=== PATIENT | male | born 1950 | race Caucasian/White ===

== ENCOUNTER 2016-10-19 22:54 | Emergency (ER) | payer MEDICARE, BC ==
--- NOTE | ~2016-10-19 | CR72 ---
[facility]. [facility] A Service of [facility] RADIOLOGY TEXT RESULTS PATIENT: MUSHTAQ RODRIGUEZ SR LOCATION: SED : 52 UNIT #: [id number] AGE: [address]: Ozzy Scott MD SEX: M ORDER DR: [id number] [place] [address] [id number] E MR#: [id number] Acc #: [id number] NAME: MUSHTAQ RODRIGUEZ SR : 1950 SEX: M STUDY DATE/TIME: 10/19/2016 23:43 UNIT: SED ROOM: STUDY DESCRIPTION: CR Chest Single View Portable Attending Physician: Ozzy Scott M.D. Ordering Physician: Ozzy Scott M.D. Primary Care Physician: Roderick Marquez M.D. MEDICAL IMAGING REPORT This report is preliminary unless electronic signature is present. EXAM AP portable chest, 10/19/2016 HISTORY 66-year-old male in the ED complaining of shortness of air beginning about 2 hours prior to arrival. TECHNIQUE AP portable chest x-ray. FINDINGS Moderately severe cardiomegaly is stable since prior studies. Pulmonary venous redistribution and diffusely increased interstitial markings suggest mild vascular congestion today. Prominent central pulmonary arteries. No visible airspace consolidation or pleural effusion. Median sternotomy. IMPRESSION Cardiomegaly and probable mild vascular congestion.. Dictated by... Harsh Hernandes M.D. THIS IS AN ELECTRONICALLY VERIFIED REPORT Harsh Hernandes M.D. at 10/20/2016 4:06 AM MONIK/radha TD: 10/20/2016 02:43 JOB #: [id number] [facility] A Service of [facility] RADIOLOGY TEXT RESULTS PATIENT: MUSHTAQ RODRIGUEZ SR LOCATION: SED : 52 UNIT #: [id number] AGE: [address]: Ozzy Scott MD SEX: M ORDER DR: MEDICAL IMAGING REPORT Page 1 of 1
--- NOTE | ~2016-10-19 | EKG ---
PATIENT: MUSHTAQ RODRIGUEZ UNIT #: [id number] Ventricular Rate: 118 BPM Atrial Rate: 125 BPM QRS Duration: 106 ms Q-T Interval: 376 ms QTC Calculation(Bezet): 527 ms Calculated R Blossom: 88 degrees Calculated T Blossom: -99 degrees Diagnosis Line: Atrial fibrillation with rapid ventricular Diagnosis Line: response with premature ventricular or aberrantly Diagnosis Line: conducted complexes Diagnosis Line: Marked ST abnormality, possible inferior Diagnosis Line: subendocardial injury Diagnosis Line: Abnormal ECG Diagnosis Line: Diagnosis Line: Confirmed by MATTHEW RICHTER MD ([id number]) on 10/23/2016 Diagnosis Line: 11:59:28 AM INTERPRETING MD: ROBER ABRAHAM
[~2016-10-19 22:54] MED LIST: ASPIRIN81 M1 PO; ATACAND HCT 321 EACH PO; AVODART0.5 MG PO; BACLOFEN10 MG PO; COUMADIN10 MG PO; COUMADIN5 MG PO; CRESTOR PO; DIGITEK125 MCG PO; DILTIAZEM 24HR120 M1 PO; DILTIAZEM 24HR120 MG PO; FINASTERIDE1 MG PO; FINASTERIDE5 MG PO; FLOMAX0.4 M1 PO; GINGER ROOT550 M1 PO; HYDRALAZINE HC100 MG PO; INFLIXIMAB; KCL PO; LASIX PO; LOPRESSOR PO; METOPROLOL SUCC25 MG PO; NIASPAN1000 MG PO; NORVASC10 MG PO; PLAVIX PO; POTASSIUM CHLO10 ME1 PO; RANEXA500 MG PO; REMICADE IM/IV; RENVELA800 MG PO; SIMVASTATIN20 MG PO; SOD BICARBONATE PO; ST. JOSEPH ASPI81 M2 PO; TOPROL XL100 MG PO; VITAMIN D32000 UNI1 PO; WARFARIN SODIUM10 MG PO; ZESTRIL2.5 MG PO; ZOCOR20 MG PO; ZOFRAN8 MG PO
[2016-10-19 23:09] LABS: BASOPHIL# 0.1 X10e3 (0-0.3); BASOPHIL% 0.8 % (0-2.5); EOSINOPHIL# 0.1 X10e3 (0-0.7); EOSINOPHIL% 0.5 % (0.0-7.0); HEMATOCRIT 31.8 % (38.0-50.0); HEMOGLOBIN 10.6 gm/dL (13.0-16.0); LYMPHOCYTE# 0.7 X10e3 (1.0-3.5); MEAN CELL VOLUME 94.2 FL (83-96); MEAN CORPUSCULAR HEMOGLOBIN 31.5 PG (28-34); MEAN CORPUSCULAR HGB CONC 33.4 g/dL (30-36); MEAN PLATELET VOLUME 7.3 FL (6.5-11.5); MONOCYTE# 0.7 X10e3 (0-1.0); MONOCYTE% 4.8 % (3.0-12.0); NEUTROPHIL# 12.9 X10e3 (1.5-7.1); NEUTROPHIL% 88.9 % (40-75); PLATELET COUNT 275 X10e3 (140-420); RED BLOOD COUNT 3.37 X10e (3.90-5.60); RED CELL DISTRIBUTION WIDTH 15.6 % (11.0-15.5); WHITE BLOOD COUNT 14.5 X10e3 (4.0-10.5)
[2016-10-19 23:09] LABS: POC - CKMB <1.0 ng/mL (0.0-7.9); POC - TROPONIN <0.05 ng/mL (<=0.05)
[2016-10-19 23:10] LABS: INR 2.2; PROTHROMBIN TIME (PATIENT) 24.7 SECONDS (9.5-12.4)
[2016-10-19 23:11] LABS: DIFF IND NO
[2016-10-19 23:17] LABS: PARTIAL THROMBOPLASTIN TIME 30.5 SECONDS (25.6-38.1)
[2016-10-19 23:30] LABS: ALBUMIN SERUM 3.2 g/dL (3.5-5.0); BILIRUBIN,TOTAL 0.6 mg/dL (0.2-2.0); BUN/CREATININE RATIO 5.57; CREATININE SERUM 6.1 mg/dL (0.6-1.4); GLOM FILT RATE Estimated 8.9 mL/min (>60); PROTEIN TOTAL SERUM 6.4 g/dL (6.0-8.3)
[2016-10-19 23:31] LABS: POTASSIUM 2.6 mmol/L (3.5-5.1)
[2016-10-19 23:45] LABS: ARTERIAL BLD GAS O2 SATURATION 94.8 % (90.0-100.0); ARTERIAL BLOOD GAS CARBOXY HB 2.4 %sat (0.0-9.0); ARTERIAL BLOOD GAS HCO3 24.3 mmol/L
[2016-10-19 23:46] LABS: MAGNESIUM 1.5 mg/dL (1.6-3.0); PHOSPHOROUS 3.5 mg/dL (2.5-4.6)
[2016-10-19 23:47] LABS: ARTERIAL BLOOD GAS ART SITE LEFT RADIAL; ARTERIAL DRAW? YES
[2016-10-20 01:48] LABS: URINE SOURCE CLEAN CATCH
[2016-10-20 01:50] LABS: URINE APPEARANCE CLEAR; URINE BILIRUBIN NEG (NEG); URINE BLOOD 1+ (NEG); URINE COLOR YELLOW; URINE KETONE NEG (NEG); URINE LEUKOCYTE ESTERASE NEG (NEG); URINE NITRATE NEG (NEG); URINE PROTEIN 2+ (NEG); URINE SPECIFIC GRAVITY 1.015 (1.003-1.035); URINE UROBILINOGEN 0.2 MG/DL (NORM)
[2016-10-20 01:53] LABS: MICRO INDICATED? YES; URINE GLUCOSE NORM (NORM)
[2016-10-20 01:57] LABS: URINE RBC 25-50 /[HPF] (0-2)
[2016-10-20 01:58] LABS: CULTURE INDICATED? YES; URINE AMORPHOUS SEDIMENT AMORP PHOSPHATES; URINE BACTERIA 2+ (NEG); URINE MUCUS PRESENT; URINE SQUAMOUS EPITHELIAL CELL FEW /[HPF]; URINE WBC 0-2 /[HPF] (0-5)
== END 2016-10-20 01:37 ==
LOC: SED 22:54
PROVIDERS: Emergency Medicine
DX: I48.91 Unspecified atrial fibrillation (principal); I13.0 Hypertensive heart and chronic kidney disease with heart failure and stage 1 through stage 4 chronic kidney disease, or unspecified chronic kidney disease; I50.9 Heart failure, unspecified; N18.9 Chronic kidney disease, unspecified; E87.6 Hypokalemia; Z79.82 Long term (current) use of aspirin; Z79.01 Long term (current) use of anticoagulants; Z79.899 Other long term (current) drug therapy
CPT/HCPCS: 36600; 71010; 80053; 81003; 82553; 82803; 83605; 83735; 83880; 84100; 84484; 85025; 85610; 85730; 87040; 87086; 93005; 96365; 96375; 99291; J2405; J2543

== ENCOUNTER 2017-02-16 12:50 | Emergency (ER) | payer MEDICARE, BC ==
--- NOTE | ~2017-02-16 | CT52 ---
[facility] A Service [facility] RADIOLOGY TEXT RESULTS PATIENT: MUSHTAQ RODRIGUEZ LOCATION: SED : 52 UNIT #: [id number] AGE: [address]: Aleksey Werner MD SEX: M ORDER DR: [id number] [address] [address] [id number] E MR#: [id number] Acc #: [id number] NAME: MUSHTAQ RODRIGUEZ SR : 1950 SEX: M STUDY DATE/TIME: 02/16/2017 13:42 UNIT: SED ROOM: STUDY DESCRIPTION: CT Cervical Spine Wo Cont Attending Physician: Aleksey Werner M.D. Ordering Physician: Aleksey Werner M.D. Primary Care Physician: Primary Care Physician No MEDICAL IMAGING REPORT This report is preliminary unless electronic signature is present. EXAM CT cervical spine without contrast DATE 02/16/2017 HISTORY Head and neck pain and stiffness for 2 weeks after hitting her head on a trailer 2 weeks ago. COMPARISON None. PROCEDURE 2 mm axial images through the cervical spine. Sagittal and coronal reformatted images were obtained. This CT exam was performed with one or more of the following radiation dose reduction techniques: Automatic exposure control, adjustment of mA and/or kV according to patient size, and iterative reconstruction. FINDINGS No acute cervical spine fracture or subluxation is seen. There is osseous fusion of the C3-C4 vertebral bodies and their posterior elements. There is mild diminished disc height at C7-T1. Anterior osteophyte formation is present at each cervical level. At C2-3, posterior disc osteophyte formation is present centrally with mild central canal stenosis. There is moderate bilateral facet arthropathy right greater than left, without significant neural foraminal stenosis. At C3-4, there is very mild posterior disc osteophyte formation barely indenting the thecal sac. There is mild right greater than left facet STS. [facility] A Service [facility] RADIOLOGY TEXT RESULTS PATIENT: MUSHTAQ RODRIGUEZ LOCATION: SED : 52 UNIT #: [id number] AGE: [address]: Aleksey Werner MD SEX: M ORDER DR: arthropathy. Mild right neural foraminal narrowing. No high-grade canal stenosis. At C4-5, broad-based posterior disc osteophyte formation is seen eccentric toward the right with uncovertebral spurring and mild bilateral facet arthropathy. There is moderate canal stenosis and moderate right neural foraminal narrowing. At C5-6, posterior disc osteophyte formation is seen eccentric to the right with mild bilateral facet arthropathy and right side uncovertebral spurring. There is mild canal stenosis, [id number] right, minimal left neural foraminal narrowing. At C6-7, posterior disc osteophyte formation is seen eccentric toward the right lateral recess resulting in mild right lateral recess stenosis. Left neural foramen is patent. At C7-T1, no significant canal or foraminal stenosis is seen. Paraspinal soft tissues are notable for dense bilateral carotid bulb and proximal internal carotid artery calcifications. Bilateral vertebral artery calcifications are also noted. IMPRESSION 1. No acute cervical spine findings. 2. Degenerative changes of the cervical spine as detailed in the report. The most significant level is thought to be at C4-5, where there is moderate canal stenosis, [id number] right neural foraminal narrowing. Dictated by... Tammy Brown M.D. THIS IS AN ELECTRONICALLY VERIFIED REPORT Tammy Brown M.D. at 02/19/2017 8:52 AM FLACO/mic TD: 02/16/2017 23:40 JOB #: [id number] MEDICAL IMAGING REPORT Page 1 of 1
--- NOTE | ~2017-02-16 | CT71 ---
[facility]. [facility] A Service of [facility] RADIOLOGY TEXT RESULTS PATIENT: MUSHTAQ RODRIGUEZ SR LOCATION: SED : 52 UNIT #: [id number] AGE: [address]: Aleksey Werner MD SEX: M ORDER DR: [id number] [address] [address] [id number] E MR#: [id number] Acc #: [id number] NAME: MUSHTAQ RODRIGUEZ, SR : 1950 SEX: M STUDY DATE/TIME: 02/16/2017 13:39 UNIT: SED ROOM: STUDY DESCRIPTION: CT Head Wo Contrast Attending Physician: Aleksey Werner M.D. Ordering Physician: Aleksey Werner M.D. Primary Care Physician: Primary Care Physician No MEDICAL IMAGING REPORT This report is preliminary unless electronic signature is present. EXAM Noncontrast CT head. DATE 02/16/2017 at 13:[address] head without contrast 05/12/2005. HISTORY Hit front head on trailer 2 weeks ago with neck pain, stiffness and head pain for [address] exam was performed with one or more of the following radiation dose reduction techniques: Automatic exposure control, adjustment of mA and/or kV according to patient size, and iterative reconstruction. There is moderate generalized parenchymal atrophy. Hypodensities in the deep white matter are nonspecific but are favored to represent changes of chronic microvascular disease. Cassidy matter-white matter junction distinction appears preserved. There is no CT evidence of acute or evolving infarct. No acute intracranial hemorrhage, mass lesion, mass effect or midline shift is seen. There are dense calcifications within the intracranial carotid arteries and bilateral vertebral arteries. Mild paranasal sinus mucosal thickening is present. No displaced calvarial fractures identified. Mastoid air cells are clear. Chronic appearing lacunar infarct within the left thalamus. Chronic appearing lacunar infarcts within the right basal ganglia. IMPRESSION 1. Moderate chronic microvascular disease with chronic-appearing lacunar infarcts in the left thalamus and right basal ganglia, with STS. [facility] A Service of [facility] RADIOLOGY TEXT RESULTS PATIENT: MUSHTAQ RODRIGUEZ SR LOCATION: SED : 52 UNIT #: [id number] AGE: [address]: Aleksey Werner MD SEX: M ORDER DR: mild generalized atrophy. These findings have developed since the noncontrast CT head from 2004. 2. No acute intracranial findings. Dictated by... Tammy Brown M.D. THIS IS AN ELECTRONICALLY VERIFIED REPORT Tammy Brown M.D. at 02/19/2017 8:52 AM [facility]/mic TD: 02/16/2017 23:34 JOB #: [id number] MEDICAL IMAGING REPORT Page 1 of 1
[2017-02-16 14:14] LABS: BASOPHIL% 0.2 % (0-2.5); EOSINOPHIL# 0.3 X10e3 (0-0.7); EOSINOPHIL% 3.6 % (0.0-7.0); HEMATOCRIT 30.1 % (38.0-50.0); HEMOGLOBIN 10.3 gm/dL (13.0-16.0); LYMPHOCYTE# 1.3 X10e3 (1.0-3.5); LYMPHOCYTE% 14.1 % (17.0-45.0); MEAN CELL VOLUME 93.9 FL (83-96); MEAN PLATELET VOLUME 7.2 FL (6.5-11.5); MONOCYTE# 0.8 X10e3 (0-1.0); MONOCYTE% 9.3 % (3.0-12.0); NEUTROPHIL# 6.5 X10e3 (1.5-7.1); NEUTROPHIL% 72.8 % (40-75); PLATELET COUNT 221 X10e3 (140-420); RED BLOOD COUNT 3.21 X10e (3.90-5.60)
[2017-02-16 14:16] LABS: DIFF IND NO
[2017-02-16 14:30] LABS: BUN/CREATININE RATIO 6.49; CALCIUM SERUM 9.1 mg/dL (8.4-10.2); CREATININE SERUM 5.7 mg/dL (0.6-1.4); GLOM FILT RATE Estimated 9.7 mL/min (>60)
[2017-02-16 14:47] LABS: INR 3.2; PROTHROMBIN TIME (PATIENT) 36.9 SECONDS (9.5-12.4)
== END 2017-02-16 15:48 | disposition home or self-care (01) ==
LOC: SED 12:50
PROVIDERS: Emergency Medicine
DX: M43.6 Torticollis (principal)
CPT/HCPCS: 36415; 70450; 72125; 80048; 85025; 85610; 96374; 96375; 99284; J1100; J2405; J3360

== ENCOUNTER 2017-03-03 18:41 | Emergency (ER) | payer MEDICARE, BC ==
--- NOTE | ~2017-03-03 | EKG ---
PATIENT: MUSHTAQ RODRIGUEZ UNIT #: [id number] Ventricular Rate: 95 BPM Atrial Rate: 93 BPM QRS Duration: 110 ms Q-T Interval: 388 ms QTC Calculation(Bezet): 487 ms Calculated R Lebo: 88 degrees Calculated T Lebo: -98 degrees Diagnosis Line: Atrial fibrillation with premature ventricular or Diagnosis Line: aberrantly conducted complexes Diagnosis Line: ST and T wave abnormality, consider inferolateral Diagnosis Line: ischemia or digitalis effect Diagnosis Line: Prolonged QT Diagnosis Line: Abnormal ECG Diagnosis Line: When compared with ECG of 19-OCT-2016 22:47, Diagnosis Line: No significant change was found Diagnosis Line: Confirmed by KARI FRANCIS MD ([id number]) on Diagnosis Line: 03/06/2017 10:41:27 AM INTERPRETING MD: PENNY ABRAHAM
--- NOTE | ~2017-03-03 | CR72 ---
[facility]. [facility] A Service of [facility] & [facility] RADIOLOGY TEXT RESULTS PATIENT: MUSHTAQ RODRIGUEZ LOCATION: SED : 52 UNIT #: [id number] AGE: [address]: Val Jackson MD SEX: M ORDER DR: [id number] [address] [address] [id number] E MR#: [id number] Acc #: [id number] NAME: MUSHTAQ RODRIGUEZ, : 1950 SEX: M STUDY DATE/TIME: 03/03/2017 19:21 UNIT: SED ROOM: STUDY DESCRIPTION: CR Chest Single View Portable Attending Physician: Val Jackson M.D. Ordering Physician: Darrin Cerna M.D. Primary Care Physician: Karl Daniels M.D. MEDICAL IMAGING REPORT This report is preliminary unless electronic signature is present. EXAM Single view of the chest dated 03/03/2017 at 1921 hours COMPARISON Single view chest dated 10/20/2016. HISTORY Chest pain with indigestion today. FINDINGS Single view of the chest was obtained. Stable postoperative cardiac changes are noted with stable qwgs-aw-jhbsllxt cardiomegaly/pericardial effusion. There is diffuse mild prominence of the interstitial markings, stable. It could be chronic or related to mild congestion. No pleural effusion or pneumothorax. Dictated by... Wesley Mandel M.D. THIS IS AN ELECTRONICALLY VERIFIED REPORT Wesley Mandel M.D. at 03/04/2017 7:08 PM CPR/mjs TD: 03/04/2017 08:45 JOB #: [id number] MEDICAL IMAGING REPORT Page 1 of 1
[2017-03-03 19:24] LABS: BASOPHIL# 0.1 X10e3 (0-0.3); BASOPHIL% 1.4 % (0-2.5); EOSINOPHIL# 0.2 X10e3 (0-0.7); EOSINOPHIL% 2.4 % (0.0-7.0); HEMATOCRIT 20.7 % (38.0-50.0); HEMOGLOBIN 7.4 gm/dL (13.0-16.0); LYMPHOCYTE# 1.9 X10e3 (1.0-3.5); MEAN CELL VOLUME 91.6 FL (83-96); MEAN CORPUSCULAR HEMOGLOBIN 32.6 PG (28-34); MEAN CORPUSCULAR HGB CONC 35.6 g/dL (30-36); MEAN PLATELET VOLUME 7.3 FL (6.5-11.5); MONOCYTE# 0.9 X10e3 (0-1.0); MONOCYTE% 8.6 % (3.0-12.0); NEUTROPHIL# 7.2 X10e3 (1.5-7.1); NEUTROPHIL% 69.6 % (40-75); PLATELET COUNT 232 X10e3 (140-420); RED BLOOD COUNT 2.26 X10e (3.90-5.60); RED CELL DISTRIBUTION WIDTH 16.8 % (11.0-15.5); WHITE BLOOD COUNT 10.4 X10e3 (4.0-10.5)
[2017-03-03 19:25] LABS: DIFF IND NO
[2017-03-03 19:30] LABS: PROTHROMBIN TIME (PATIENT) 33.7 SECONDS (9.5-12.4)
[2017-03-03 19:30] LABS: POC - CKMB <1.0 ng/mL (0.0-7.9); POC - TROPONIN <0.05 ng/mL (<=0.05)
[2017-03-03 19:37] LABS: PARTIAL THROMBOPLASTIN TIME 37.4 SECONDS (25.6-38.1)
[2017-03-03 19:38] LABS: ALBUMIN SERUM 3.1 g/dL (3.5-5.0); ALKALINE PHOSPHATASE 46 U/L (32-92); ALT (SGPT) 8 U/L (10-40); AST (SGOT) 13 U/L (10-42); BILIRUBIN,TOTAL 0.3 mg/dL (0.2-2.0); BLOOD UREA NITROGEN 57 mg/dL (9-23); BUN/CREATININE RATIO 9.66; CALCIUM SERUM 8.8 mg/dL (8.4-10.2); CARBON DIOXIDE 25 mmol/L (22-31); CHLORIDE 102 mmol/L (100-111); CREATININE SERUM 5.9 mg/dL (0.6-1.4); GLOM FILT RATE Estimated 9.3 mL/min (>60); GLUCOSE FASTING 112 mg/dL (70-110); POTASSIUM 3.2 mmol/L (3.5-5.1); PROTEIN TOTAL SERUM 6.1 g/dL (6.0-8.3); SODIUM 135 mmol/L (135-145)
[2017-03-03 19:39] LABS: BILIRUBIN, DIRECT <0.1 mg/dL (0.0-0.2); BILIRUBIN,INDIRECT 0.2 mg/dL (0.0-0.9)
[2017-03-03 21:09] LABS: POC - CKMB <1.0 ng/mL (0.0-7.9); POC - TROPONIN <0.05 ng/mL (<=0.05)
== END 2017-03-03 22:00 ==
LOC: SED 18:41
PROVIDERS: Emergency Medicine
DX: R07.9 Chest pain, unspecified (principal); K92.2 Gastrointestinal hemorrhage, unspecified; D64.9 Anemia, unspecified; R94.31 Abnormal electrocardiogram [ECG] [EKG]; I25.10 Atherosclerotic heart disease of native coronary artery without angina pectoris; I12.9 Hypertensive chronic kidney disease with stage 1 through stage 4 chronic kidney disease, or unspecified chronic kidney disease; N18.9 Chronic kidney disease, unspecified; Z90.49 Acquired absence of other specified parts of digestive tract; F17.200 Nicotine dependence, unspecified, uncomplicated
CPT/HCPCS: 36415; 71010; 80048; 80076; 82270; 82553; 83735; 83874; 83880; 84484; 85025; 85610; 85730; 93005; 96374; 96375; 99285; C9113; J2405